=== PATIENT | female | born 1990 | race Caucasian/White ===

== ENCOUNTER 2016-09-15 03:00 | Emergency (ER) | payer SELFPAY ==
[~2016-09-15] VITALS: Ht 162.6 cm; Wt 59.0 kg
[~2016-09-15 03:00] MED LIST: GUAI1SOL3 PO; METH10CO3 PO
[2016-09-15 03:03] VITALS: BP 135/89; PULSE 84; RESP 14; TEMP 98.9; O2SAT 100
[2016-09-15] MEDS ORDERED: SODIUM CHLOR 0.9% 1000 ML INJ 1,000 ML IV SCH (03:51)
[2016-09-15] MEDS ORDERED: HYDROmorphone HCL PF 1 MG/ML VIAL IVS ONE (04:00)
[2016-09-15] MEDS ORDERED: ONDANSETRON HCL 4 MG/2 ML VIAL IVP ONE (04:00)
[2016-09-15] MEDS ORDERED: SODIUM CHLORIDE 0.9% FLUSH 5 ML FLUSH IVF PRN (04:00)
[2016-09-15] MEDS ORDERED: ALUMINUM/MAGNESIUM/SIMETH 30 ML CUP PO ONE (04:00)
[2016-09-15] MEDS ORDERED: LIDOCAINE VISCOUS 2% SOLN 15 ML UDC PO ONE (04:00)
[2016-09-15] MEDS ORDERED: CLINDAMYCIN 150 MG CAP PO ONE (04:15)
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
[2016-09-15] MEDS ORDERED: CLIN1CAP5 PO (05:04)
--- NOTE | 2016-09-15 05:43 | RADRPT ---
EXAM DATE/TIME: 09/15/2016 04:39 [facility] COMPARISON: No previous studies available for comparison. INDICATIONS : Left foot infection as a result of IV drug injections. MEDICAL HISTORY : None. SURGICAL HISTORY : None. ENCOUNTER: Initial ACUITY: 1 day PAIN SCORE: 8/10 LOCATION: Left foot FINDINGS: Three view examination of the left foot demonstrates no soft tissue swelling, dislocation, or fractur e. The tarsal bones appear intact. The interphalangeal and metatarsophalangeal joints are intact. The calcaneus is intact. Bony mineralization is normal. CONCLUSION: 1. No acute bony abnormality. Derrick Britton MD on September 15, 2016 at 5:42 Board Certified Radiologist. This report was verified electronically.
[2016-09-15 06:10] VITALS: BP 90/58; PULSE 70; RESP 18; TEMP 98.4; O2SAT 100
== END 2016-09-15 06:14 | disposition home or self-care (01) ==
LOC: NEPC 03:00
DX: L03.116 Cellulitis of left lower limb (principal); I10 Essential (primary) hypertension; B19.20 Unspecified viral hepatitis C without hepatic coma; F17.210 Nicotine dependence, cigarettes, uncomplicated
CPT/HCPCS: 73630; 84703; 99283

== ENCOUNTER 2016-10-14 10:25 | Emergency (ER) | payer SELFPAY ==
[~2016-10-14] VITALS: Ht 160 cm; Wt 60.0 kg
[~2016-10-14 10:25] MED LIST changes: +CLIN1CAP5 PO; -GUAI1SOL3 PO
[2016-10-14 10:27] VITALS: BP 158/79; PULSE 90; RESP 15; TEMP 98.4; O2SAT 98
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
[2016-10-14] MEDS ORDERED: BACT800T5 PO (10:52)
== END 2016-10-14 11:04 | disposition home or self-care (01) ==
LOC: NEPD 10:25
DX: L03.032 Cellulitis of left toe (principal); F17.210 Nicotine dependence, cigarettes, uncomplicated
CPT/HCPCS: 99282

== ENCOUNTER 2016-10-18 19:25 | Emergency (ER) | payer SELFPAY ==
[~2016-10-18] VITALS: Ht 167.6 cm; Wt 60.0 kg
[~2016-10-18 19:25] MED LIST changes: +BACT800T5 PO
[2016-10-18 19:28] VITALS: BP 117/64; PULSE 59; RESP 14; TEMP 98.6; O2SAT 100
--- NOTE | 2016-10-18 19:56 | PD ---
Physical Exam Time Seen by Provider: 19:51 Narrative 26yo F c/o chest pain x 2days. Dizziness, lightheaded, shakiness, hot flashes today. Reports nausea w/o vomiting. Currently being tx for cellulitis in L foot w/ no improvement in symptoms. On Bactrim and just started. Second round of oral antibx for foot cellulitis. Has felt hot, but has not checked temperature. Patient stable. Patient seen in triage. Awaiting bed placement. Data Data Last Documented VS Vital Signs Date Time Temp Pulse Resp B/P Pulse Ox O2 Delivery O2 Flow Rate FiO2 10/18/16 19:28 98.6 59 14 117/64 100 Room Air MDM Supervised Visit with NELLA: Linda Foster Oct 18, 2016 19:56
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
[2016-10-18] MEDS ORDERED: ONDANSETRON HCL 4 MG/2 ML VIAL IV PUSH ONE (22:30)
[2016-10-18] MEDS ORDERED: SODIUM CHLOR 0.9% 1000 ML INJ 1,000 ML IV ONE (22:30)
[2016-10-18 23:14] LABS: AUTOMATED NEUTROPHIL # 3.4 TH/MM3 (1.8-7.7); BASOPHIL % 0.6 % (0.0-2.0); EOSINOPHIL # 0.2 TH/MM3 (0-0.4); EOSINOPHIL % 4.6 % (0.0-4.0); HEMATOCRIT 42.2 % (35.0-46.0); HEMO FLAGS DIFF FINAL; LYMPH % 24.6 % (9.0-44.0); LYMPHOCYTE # 1.3 TH/MM3 (1.0-4.8); MEAN CORPUSCULAR HEMOGLOBIN 27.9 PG (27.0-34.0); MEAN CORPUSCULAR HGB CONC 33.2 % (32.0-36.0); MONO % 7.5 % (0.0-8.0); NEUT % 62.7 % (16.0-70.0); PLATELET COUNT 203 TH/MM3 (150-450); RED BLOOD COUNT 5.03 MIL/MM3 (4.00-5.30); RED CELL DISTRIBUTION WIDTH 14.1 % (11.6-17.2); WHITE BLOOD COUNT 5.4 TH/MM3 (4.0-11.0)
[2016-10-18 23:33] LABS: ALKALINE PHOSPHATASE 79 U/L (45-117); ALT (GPT) 22 U/L (10-53); ANION GAP 8 MEQ/L (5-15); AST (GOT) 19 U/L (15-37); BICARBONATE 27.8 MEQ/L (21.0-32.0); BLOOD UREA NITROGEN 8 MG/DL (7-18); CHLORIDE 101 MEQ/L (98-107); GLOMERULAR FILTRATION RATE 71 ML/MIN (>89); SODIUM (NA) 137 MEQ/L (136-145); TOTAL BILIRUBIN ADULT 0.2 MG/DL (0.2-1.0)
[2016-10-18] MEDS ORDERED: DIFL150T PO (23:58)
[2016-10-19 00:02] VITALS: BP 118/78
== END 2016-10-19 00:02 | disposition home or self-care (01) ==
LOC: NEPE 19:25
DX: L03.116 Cellulitis of left lower limb (principal); B95.7 Other staphylococcus as the cause of diseases classified elsewhere; F17.210 Nicotine dependence, cigarettes, uncomplicated
CPT/HCPCS: 80053; 83605; 85025; 86403; 87040; 87077; 87186; 87205; 96361; 96374; 99284; J2405; J7030

== ENCOUNTER 2016-12-16 23:45 | Emergency (ER) | payer SELFPAY ==
[~2016-12-16] VITALS: Ht 160 cm; Wt 59.0 kg
[~2016-12-16 23:45] MED LIST changes: -CLIN1CAP5 PO; +DIFL150T PO
[2016-12-16 23:47] VITALS: BP 151/70; PULSE 69; RESP 16; TEMP 98.3; O2SAT 98
[2016-12-17 00:11] VITALS: BP 122/80; PULSE 81; RESP 16; O2SAT 99
[2016-12-17] MEDS ORDERED: SODIUM CHLOR 0.9% 1000 ML INJ 1,000 ML IV ONE (00:30)
[2016-12-17] MEDS ORDERED: CEPHALEXIN MONOHYDRATE 500 MG CAP PO ONE (01:00)
[2016-12-17] MEDS ORDERED: SULFAMETHOXAZOLE-TRIMETHOPRIM DS 800-160 MG TAB PO ONE (01:00)
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
[2016-12-17 01:20] LABS: AUTOMATED NEUTROPHIL # 3.3 TH/MM3 (1.8-7.7); BASOPHIL % 0.2 % (0.0-2.0); EOSINOPHIL # 0.3 TH/MM3 (0-0.4); EOSINOPHIL % 4.7 % (0.0-4.0); HEMATOCRIT 41.9 % (35.0-46.0); HEMO FLAGS DIFF FINAL; LYMPH % 40.1 % (9.0-44.0); LYMPHOCYTE # 2.8 TH/MM3 (1.0-4.8); MEAN CELL VOLUME 84.3 FL (80.0-100.0); MEAN CORPUSCULAR HEMOGLOBIN 28.2 PG (27.0-34.0); MEAN CORPUSCULAR HGB CONC 33.5 % (32.0-36.0); PLATELET COUNT 217 TH/MM3 (150-450); RED BLOOD COUNT 4.97 MIL/MM3 (4.00-5.30); RED CELL DISTRIBUTION WIDTH 14.3 % (11.6-17.2)
[2016-12-17 01:29] LABS: BLOOD, URINE NEG (NEG); GLUCOSE,URINE NEG (NEG); KETONE, URINE NEG (NEG); NITRITE,URINE NEG (NEG); PH, URINE 6.5 (5.0-8.5); SQUAMOUS EPITHELIAL CELL URINE 2 /hpf (0-5); URINE COLOR YELLOW (YELLW/STRAW)
[2016-12-17 01:30] LABS: COMMENT (UR) CULT NOT INDICATED; CULTURE IF INDICATED CULT NOT INDICATED
--- NOTE | 2016-12-17 01:31 | RADRPT ---
EXAM DATE/TIME: 12/17/2016 01:06 [facility] COMPARISON: FOOT LEFT COMPLETE ([id number]), September 15, 2016, 4:39. INDICATIONS : Pain and swelling to left foot x 3 days. No known injury. Pt states does use IV drugs. MEDICAL HISTORY : None. SURGICAL HISTORY : None. ENCOUNTER: Initial ACUITY: 3 days PAIN SCORE: 7/10 LOCATION: Left foot FINDINGS: Three view examination of the left foot demonstrates no soft tissue swelling, dislocation, or fractur e. The tarsal bones appear intact. The interphalangeal and metatarsophalangeal joints are intact. The calcaneus is intact. Bony mineralization is normal. CONCLUSION: Normal left foot radiographs. Obi Beyer MD on December 17, 2016 at 1:29 Board Certified Radiologist. This report was verified electronically.
[2016-12-17 01:36] LABS: AMPHETAMINE, URINE NEG (NEG); BARBITURATES, URINE NEG (NEG); COCAINE, URINE POS (NEG)
[2016-12-17 01:44] LABS: ALT (GPT) 23 U/L (10-53); ANION GAP 6 MEQ/L (5-15); AST (GOT) 18 U/L (15-37); BICARBONATE 28.7 MEQ/L (21.0-32.0); BLOOD UREA NITROGEN 18 MG/DL (7-18); CHLORIDE 106 MEQ/L (98-107); GLOMERULAR FILTRATION RATE 85 ML/MIN (>89); POTASSIUM 3.8 MEQ/L (3.5-5.1); SODIUM (NA) 141 MEQ/L (136-145)
[2016-12-17 01:46] LABS: ALKALINE PHOSPHATASE 66 U/L (45-117); TOTAL BILIRUBIN ADULT 0.3 MG/DL (0.2-1.0)
[2016-12-17] MEDS ORDERED: BACT800T5 PO (01:54)
[2016-12-17] MEDS ORDERED: CEPH-460 PO (01:54)
[2016-12-17 01:59] VITALS: BP 120/67
== END 2016-12-17 02:02 | disposition home or self-care (01) ==
LOC: NEPE 23:45
DX: L03.116 Cellulitis of left lower limb (principal); B19.20 Unspecified viral hepatitis C without hepatic coma; I10 Essential (primary) hypertension; F17.210 Nicotine dependence, cigarettes, uncomplicated; Z79.899 Other long term (current) drug therapy
CPT/HCPCS: 73630; 80053; 80307; 81001; 83605; 85025; 86140; 87040; 99284

== ENCOUNTER 2017-02-11 19:17 | Emergency (ER) | payer SELFPAY ==
[~2017-02-11] VITALS: Ht 162.6 cm; Wt 100.4 kg
[~2017-02-11 19:17] MED LIST changes: +CEPH-460 PO; -DIFL150T PO
[2017-02-11 19:21] VITALS: BP 114/59; PULSE 56; RESP 16; TEMP 98; O2SAT 97
[2017-02-11] MEDS ORDERED: PENI500T PO (19:55)
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
== END 2017-02-11 20:06 | disposition home or self-care (01) ==
LOC: PHED 19:17 → PHEFT 20:06
DX: J02.9 Acute pharyngitis, unspecified (principal); F17.210 Nicotine dependence, cigarettes, uncomplicated
CPT/HCPCS: 99283

== ENCOUNTER 2017-04-19 07:29 | Emergency (ER) | payer SELFPAY ==
[~2017-04-19] VITALS: Ht 160 cm; Wt 54.5 kg
[~2017-04-19 07:29] MED LIST changes: -BACT800T5 PO; -CEPH-460 PO; +PENI500T PO
[2017-04-19 07:31] VITALS: BP 131/73; PULSE 91; RESP 14; TEMP 98; O2SAT 99
[2017-04-19] MEDS ORDERED: BACT800T5 PO (07:55)
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
[2017-04-19] MEDS ORDERED: PRED50 PO (22:38)
[2017-04-19] MEDS ORDERED: CEPH-460 PO (22:38)
== END 2017-04-19 08:10 | disposition home or self-care (01) ==
LOC: NEPK 07:29
DX: L03.011 Cellulitis of right finger (principal)
CPT/HCPCS: 99283

== ENCOUNTER 2017-04-19 21:34 | Emergency (ER) | payer SELFPAY ==
[~2017-04-19] VITALS: Ht 160 cm; Wt 55.0 kg
[~2017-04-19 21:34] MED LIST changes: +BACT800T5 PO
[2017-04-19 21:36] VITALS: BP 134/74; PULSE 77; RESP 16; TEMP 98.7; O2SAT 98
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
[2017-04-19] MEDS ORDERED: predniSONE 50 MG TAB PO ONE (22:00)
[2017-04-19] MEDS ORDERED: diphenhydrAMINE HCL 50 MG CAP PO ONE (22:00)
[2017-04-19] MEDS ORDERED: RANITIDINE HCL SYRUP 150 MG/10 ML UDC PO ONE (22:00)
[2017-04-19] MEDS ORDERED: PRED50 PO (22:38)
[2017-04-19] MEDS ORDERED: CEPH-460 PO (22:38)
== END 2017-04-19 22:54 | disposition home or self-care (01) ==
LOC: NEPD 21:34
DX: T78.40XA Allergy, unspecified, initial encounter (principal); L03.011 Cellulitis of right finger
CPT/HCPCS: 99284; J7512; Q0163

== ENCOUNTER 2017-09-02 06:09 | Emergency (ER) | payer SELFPAY ==
[~2017-09-02] VITALS: Ht 160 cm; Wt 50.0 kg
[~2017-09-02 06:09] MED LIST changes: +CEPH-460 PO; -PENI500T PO; +PRED50 PO
[2017-09-02 06:17] VITALS: BP 109/75; PULSE 75; RESP 18; TEMP 98.1; O2SAT 100
[2017-09-02] MEDS ORDERED: METH10CO PO (06:20)
[2017-09-02] MEDS ORDERED: BENZ100 PO (07:20)
[2017-09-02] MEDS ORDERED: AZIT500T2 PO (07:20)
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
== END 2017-09-02 07:58 | disposition home or self-care (01) ==
LOC: NEPD 06:09
DX: J06.9 Acute upper respiratory infection, unspecified (principal); I10 Essential (primary) hypertension; F17.210 Nicotine dependence, cigarettes, uncomplicated; Z86.19 Personal history of other infectious and parasitic diseases; Z88.2 Allergy status to sulfonamides; Z88.8 Allergy status to other drugs, medicaments and biological substances; Z79.899 Other long term (current) drug therapy
CPT/HCPCS: 99283

== ENCOUNTER 2017-12-09 16:02 | Emergency (ER) | payer SELFPAY ==
[~2017-12-09] VITALS: Ht 160 cm; Wt 45.0 kg
[~2017-12-09 16:02] MED LIST changes: +AZIT500T2 PO; -BACT800T5 PO; +BENZ100 PO; -CEPH-460 PO; +METH10CO PO; -METH10CO3 PO; -PRED50 PO
[2017-12-09 16:30] VITALS: BP 138/79; PULSE 87; RESP 16; TEMP 99; O2SAT 98
[2017-12-09 20:40] VITALS: BP 140/63; PULSE 47; RESP 16; O2SAT 99
[2017-12-09] MEDS ORDERED: ONDANSETRON ODT 4 MG TAB PO ONE (20:45)
[2017-12-09 21:36] LABS: BILIRUBIN, URINE NEG (NEG); BLOOD, URINE NEG (NEG); GLUCOSE,URINE NEG (NEG); KETONE, URINE NEG (NEG); NITRITE,URINE NEG (NEG); SQUAMOUS EPITHELIAL CELL URINE 4 /hpf (0-5); URINE COLOR LIGHT-YELLOW (YELLW/STRAW); URINE LEUKOCYTE ESTERASE TRACE (NEG)
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
== END 2017-12-09 22:24 | disposition home or self-care (01) ==
LOC: NEPD 16:02
DX: R11.2 Nausea with vomiting, unspecified (principal); R19.7 Diarrhea, unspecified; F17.210 Nicotine dependence, cigarettes, uncomplicated; F12.90 Cannabis use, unspecified, uncomplicated
CPT/HCPCS: 81001; 84703; 99283